=== PATIENT | female | born 1990 | race Caucasian/White ===

== ENCOUNTER → 2019-03-06 | Outpatient (CLI) | payer MEDICAID | END | disposition home or self-care (01) | LOC: RAD 10:18 | DX: O26.90 Pregnancy related conditions, unspecified, unspecified trimester (principal); Z3A.00 Weeks of gestation of pregnancy not specified; R76.11 Nonspecific reaction to tuberculin skin test without active tuberculosis ==

== ENCOUNTER 2019-04-27 10:34 | Inpatient (IN) | payer MEDICAID ==
[2019-04-27] MEDS ORDERED: IBUPROFEN 600 MG TAB PO (11:00)
[2019-04-27] MEDS ORDERED: MISOPROSTOL 200 MCG TAB PR (11:00)
[2019-04-27] MEDS ORDERED: LIDOCAINE 1% (MPF) 30 ML INJ INJ (11:00)
[2019-04-27] MEDS ORDERED: CARBOPROST 250 MCG INJ IM (11:00)
[2019-04-27] MEDS ORDERED: METHYLERGONOVINE 0.2 MG INJ IM (11:00)
[2019-04-27] MEDS ORDERED: OXYTOCIN 30 UNITS/LR 500 ML IV (11:00)
[2019-04-27] MEDS ORDERED: BUTORPHANOL 2 MG INJ IV (11:00)
[2019-04-27] MEDS: LACTATED RINGER'S 1,000 ML IV ×3 (11:21→20:01)
[2019-04-27 11:30] LABS: ADD MAN DIFF? NO
[2019-04-27 11:35] LABS: BASOPHILS % 0.2 % (0.0-2.0); EOSINOPHILS % 0.3 % (0.0-7.0); HEMATOCRIT 34.6 % (37.0-47.0); HEMOGLOBIN 11.6 g/dl (12.0-16.0); LYMPHOCYTES # 1.3 10^3/ul (0.8-2.9); LYMPHOCYTES % 14.5 % (15.0-51.0); MEAN CORPUSCULAR HEMOGLOBIN 33.7 pg (29.0-33.0); MEAN CORPUSCULAR HGB CONC 33.5 g/dl (32.0-37.0); MEAN CORPUSCULAR VOLUME 100.6 fl (82.0-101.0); MEAN PLATELET VOLUME 9.4 fl (7.4-10.4); MONOCYTE # 0.5 10^3/ul (0.3-0.9); NEUTROPHIL # 6.9 10^3/ul (1.6-7.5); NEUTROPHILS % 78.4 % (39.0-77.0); PLATELET COUNT 274 10^3/UL (140-415); RED BLOOD COUNT 3.44 10^6/ul (4.20-5.40); RED CELL DISTRIBUTION WIDTH 14.2 % (11.5-14.5)
[2019-04-27 11:35] LABS: WHITE BLOOD COUNT 8.8 10^3/ul (4.8-10.8)
[2019-04-27 11:52] LABS: INR 0.87; PROTIME 11.9 Sec (11.9-14.9); PT RATIO 0.9
[2019-04-27 11:53] LABS: PARTIAL THROMBOPLASTIN TIME 30.3 Sec (23.0-35.0)
[2019-04-27 12:02] LABS: GLUCOSE 94 mg/dl (70-220)
[2019-04-27] MEDS: AMPICILLIN 2 GM/NS (PMX) 100 ML IV (12:38)
[2019-04-27 14:22] LABS: HEPATITIS B SURFACE ANTIGEN NEGATIVE (NEGATIVE)
[2019-04-27] MEDS ORDERED: AMPICILLIN 1 GM/NS (PMX) 50 ML IV (15:00)
[2019-04-27 16:41] LABS: ALANINE AMINOTRANSFERASE 36 IU/L (13-69); ALBUMIN 3.4 g/dl (3.3-4.9); ALBUMIN/GLOBULIN RATIO 1.13; ALKALINE PHOSPHATASE 138 IU/L (42-121); ANION GAP 10 (5-13); ASPARTATE AMINO TRANSFERASE 23 IU/L (15-46); BILIRUBIN,INDIRECT 0.4 mg/dl (0-1.1); BILIRUBIN,TOTAL 0.4 mg/dl (0.2-1.3); BLOOD UREA NITROGEN 7 mg/dl (7-20); CALCIUM 9.2 mg/dl (8.4-10.2); CARBON DIOXIDE 21 mmol/L (21-31); CHLORIDE 109 mmol/L (97-110); Estimated GFR > 60 mL/min (>60); GLUCOSE 89 mg/dl (70-220); POTASSIUM 3.6 mmol/L (3.5-5.1); SODIUM 140 mmol/L (135-144); TOTAL PROTEIN 6.4 g/dl (6.1-8.1); URIC ACID 2.4 mg/dl (3.1-7.9)
[2019-04-27] MEDS: MISOPROSTOL 50 MCG CAPSULE PO ×2 (18:59→23:02)
[2019-04-27 20:48] LABS: RAPID PLASMA REAGIN NONREACTIVE (NR)
[2019-04-27 20:58] LABS: ADD UMIC YES; UR ASCORBIC ACID NEGATIVE (NEGATIVE); UR BACTERIA FEW /HPF (NONE SEEN); UR BILIRUBIN (Dip) NEGATIVE (NEGATIVE); UR BLOOD (Dip) 3+ mg/dL (NEGATIVE); UR CLARITY SLIGHTLY CLOUDY (CLEAR); UR COLOR YELLOW (YELLOW); UR GLUCOSE (Dip) NEGATIVE (NEGATIVE); UR KETONES (Dip) 2+ mg/dL (NEGATIVE); UR LEUKOCYTE ESTERASE (Dip) 1+ Leu/ul (NEGATIVE); UR NITRITE (Dip) NEGATIVE (NEGATIVE); UR RBC 2 /HPF (0-5); UR SPECIFIC GRAVITY (Dip) 1.013 (1.003-1.030); UR SQUAMOUS EPITHELIAL CELL MODERATE /HPF (FEW); UR TOTAL PROTEIN (Dip) NEGATIVE (NEGATIVE); UR UROBILINOGEN (Dip) NEGATIVE (NEGATIVE); UR WBC 10 /HPF (0-5)
[2019-04-28] MEDS: MISOPROSTOL 50 MCG CAPSULE PO ×2 (03:26→07:29)
[2019-04-28] MEDS: LACTATED RINGER'S 1,000 ML IV ×4 (03:36→22:07)
[2019-04-28] MEDS: OXYTOCIN 30 UNITS/LR 500 ML IV (15:48)
[2019-04-29] MEDS: LACTATED RINGER'S 1,000 ML IV ×3 (06:14→14:35)
[2019-04-29] MEDS: MISOPROSTOL 50 MCG CAPSULE VAG (11:00)
[2019-04-29] MEDS ORDERED: LACTATED RINGER'S 1,000 ML IV (11:07)
[2019-04-29] MEDS ORDERED: FENTAnyl 2MCG/ML-ROPIV 0.2% 100 ML (12:08)
[2019-04-29] MEDS: OXYTOCIN 30 UNITS/LR 500 ML IV ×3 (14:34→17:08)
[2019-04-29] MEDS ORDERED: FENTAnyl 2MCG/ML-ROPIV 0.2% 100 ML BAG EPI (16:30)
[2019-04-29] MEDS ORDERED: ONDANSETRON 4 MG INJ IV (16:30)
[2019-04-29] MEDS ORDERED: NALOXONE (0.4 MG/ML) INJ IV (16:30)
[2019-04-29] MEDS: MINERAL OIL LIGHT 10 ML VIAL TOP (16:56)
[2019-04-29] MEDS: ACETAMINOPHEN 500 MG TAB PO (17:09)
[2019-04-29] MEDS: KETOROLAC 30 MG INJ IV (17:51)
[2019-04-29] MEDS ORDERED: WITCH HAZEL/GLYCERIN PAD PR (18:30)
[2019-04-29] MEDS ORDERED: MISOPROSTOL 200 MCG TAB PR (18:30)
[2019-04-29] MEDS: CEPHALEXIN 500 MG CAP PO (18:30)
[2019-04-29] MEDS ORDERED: DIBUCAINE 1% 30 GM OINT TOP (18:30)
[2019-04-29] MEDS ORDERED: HYDROCODONE/APAP (5/325) TAB PO ×2 (18:30)
[2019-04-29] MEDS ORDERED: METHYLERGONOVINE 0.2 MG INJ IM (18:30)
[2019-04-29] MEDS ORDERED: OXYTOCIN 30 UNITS/LR 500 ML IV (18:30)
[2019-04-29] MEDS ORDERED: ZOLPIDEM 5 MG TAB PO (18:30)
[2019-04-29] MEDS: LACTATED RINGER'S 1,000 ML IV* (18:30)
[2019-04-29] MEDS ORDERED: CARBOPROST 250 MCG INJ IM (18:30)
[2019-04-29] MEDS ORDERED: BENZOCAINE 20% 56 ML SPRAY TOP (18:30)
[2019-04-29] MEDS: SENNA/DOCUSATE NA (8.6MG/50MG) TAB PO (20:48)
[2019-04-29] MEDS: MAGNESIUM HYDROXIDE 30ML CUP PO (20:48)
[2019-04-30] MEDS: CEPHALEXIN 500 MG CAP PO ×4 (00:10→17:48)
[2019-04-30] MEDS: IBUPROFEN 600 MG TAB PO ×4 (00:10→17:48)
[2019-04-30] MEDS: LACTATED RINGER'S 1,000 ML IV* ×2 (02:30→16:29)
[2019-04-30 07:40] LABS: ADD MAN DIFF? NO
[2019-04-30 07:44] LABS: WHITE BLOOD COUNT 10.1 10^3/ul (4.8-10.8)
[2019-04-30 07:44] LABS: BASOPHILS % 0.3 % (0.0-2.0); EOSINOPHILS % 0.4 % (0.0-7.0); HEMATOCRIT 31.2 % (37.0-47.0); HEMOGLOBIN 10.6 g/dl (12.0-16.0); LYMPHOCYTES # 1.8 10^3/ul (0.8-2.9); LYMPHOCYTES % 18.1 % (15.0-51.0); MEAN CORPUSCULAR HEMOGLOBIN 34.4 pg (29.0-33.0); MEAN CORPUSCULAR VOLUME 101.3 fl (82.0-101.0); MEAN PLATELET VOLUME 9.4 fl (7.4-10.4); MONOCYTE # 0.5 10^3/ul (0.3-0.9); MONOCYTES % 4.8 % (0.0-11.0); NEUTROPHIL # 7.7 10^3/ul (1.6-7.5); NEUTROPHILS % 75.8 % (39.0-77.0); PLATELET COUNT 233 10^3/UL (140-415); RED BLOOD COUNT 3.08 10^6/ul (4.20-5.40); RED CELL DISTRIBUTION WIDTH 14.3 % (11.5-14.5)
[2019-04-30] MEDS: ACCU-CHEK XX ×6 (08:23→14:54)
[2019-04-30] MEDS: MAGNESIUM HYDROXIDE 30ML CUP PO ×2 (09:46→21:39)
[2019-04-30] MEDS: SENNA/DOCUSATE NA (8.6MG/50MG) TAB PO ×2 (09:46→21:39)
[2019-05-01] MEDS: IBUPROFEN 600 MG TAB PO ×4 (01:25→17:47)
[2019-05-01] MEDS: CEPHALEXIN 500 MG CAP PO ×4 (01:25→17:47)
[2019-05-01] MEDS: LANOLIN HPA 1 PKT TOP (08:38)
[2019-05-01] MEDS: SENNA/DOCUSATE NA (8.6MG/50MG) TAB PO (08:38)
[2019-05-01] MEDS: MAGNESIUM HYDROXIDE 30ML CUP PO (08:54)
[2019-05-01] MEDS: VARICELLA VACCINE LIVE/PF 1,350 UNIT/0.5 ML ML SC* (09:00)
[2019-05-01] MEDS: DIPHTH/TET/ACEL PERTUSS (ADULT) 0.5 ML VIAL IM* (09:00)
[2019-05-01] MEDS: MEASLES,MUMPS,RUBELLA VACCINE INJ SC* (09:00)
== END 2019-05-01 18:50 | disposition home or self-care (01) | DRG 807 ==
LOC: PP1 04-29 18:05 → L-D 10:34
PROVIDERS: Obstetrics & Gynecology
PROC: 10E0XZZ Delivery of Products of Conception, External Approach (ICD-10-PCS; principal; 2019-04-29)
PROC: 0HQ9XZZ Repair Perineum Skin, External Approach (ICD-10-PCS; 2019-04-29)
DX: O41.03X0 Oligohydramnios, third trimester, not applicable or unspecified (principal); Z37.0 Single live birth; O24.420 Gestational diabetes mellitus in childbirth, diet controlled; O70.9 Perineal laceration during delivery, unspecified; Z3A.38 38 weeks gestation of pregnancy
CPT/HCPCS: 62322; 76815; 80053; 81001; 82947; 82962; 84560; 85025; 85384; 85610; 85730; 86592; 86850; 86900; 86901; 87086; 87340; 90716